=== PATIENT | male | born 1925 | race Caucasian/White ===

== ENCOUNTER 2016-06-20 09:45 | Outpatient (CLI) | payer MEDICARE, OTHER | END 2016-06-20 23:59 | disposition home or self-care (01) | LOC: WOU 09:45 | PROVIDERS: ATTEND Podiatrist Foot & Ankle Surgery | DX: I87.2 Venous insufficiency (chronic) (peripheral) (principal); L97.321 Non-pressure chronic ulcer of left ankle limited to breakdown of skin; R60.0 Localized edema; I10 Essential (primary) hypertension; E03.9 Hypothyroidism, unspecified | CPT/HCPCS: 11042; A6209; A6402 ==

== ENCOUNTER 2016-06-24 09:40 | Outpatient (CLI) | payer MEDICARE, OTHER | END 2016-06-24 23:59 | disposition home or self-care (01) | LOC: WOU 09:40 | PROVIDERS: ATTEND Podiatrist Foot & Ankle Surgery | DX: I87.319 Chronic venous hypertension (idiopathic) with ulcer of unspecified lower extremity (principal); L97.909 Non-pressure chronic ulcer of unspecified part of unspecified lower leg with unspecified severity; R60.0 Localized edema; I70.202 Unspecified atherosclerosis of native arteries of extremities, left leg | CPT/HCPCS: 93925-TC; 93926-TC; 93971-TC ==

== ENCOUNTER 2016-06-27 09:40 | Outpatient (CLI) | payer MEDICARE, OTHER | END 2016-06-27 23:59 | disposition home or self-care (01) | LOC: WOU 09:40 | PROVIDERS: ATTEND Podiatrist Foot & Ankle Surgery | DX: I87.332 Chronic venous hypertension (idiopathic) with ulcer and inflammation of left lower extremity (principal); L97.821 Non-pressure chronic ulcer of other part of left lower leg limited to breakdown of skin; E03.9 Hypothyroidism, unspecified; Z91.040 Latex allergy status | CPT/HCPCS: 11042; A6402 ==

== ENCOUNTER 2016-07-08 13:46 | Outpatient (CLI) | payer MEDICARE, OTHER | END 2016-07-08 23:59 | disposition home or self-care (01) | LOC: VASLAB 13:46 | PROVIDERS: ATTEND Surgery Vascular Surgery | DX: I73.89 Other specified peripheral vascular diseases (principal); I70.248 Atherosclerosis of native arteries of left leg with ulceration of other part of lower leg; L97.829 Non-pressure chronic ulcer of other part of left lower leg with unspecified severity; I10 Essential (primary) hypertension; T14.90 Injury, unspecified; W22.8XXS Striking against or struck by other objects, sequela; Z91.040 Latex allergy status | CPT/HCPCS: A6207; A6402; G0463 ==

== ENCOUNTER 2016-07-09 09:20 | Outpatient (CLI) | payer MEDICARE, OTHER | END 2016-07-09 23:59 | disposition home or self-care (01) | LOC: WOU 09:20 | PROVIDERS: ATTEND Podiatrist Foot & Ankle Surgery | DX: I87.2 Venous insufficiency (chronic) (peripheral) (principal); L97.829 Non-pressure chronic ulcer of other part of left lower leg with unspecified severity; I10 Essential (primary) hypertension; E03.9 Hypothyroidism, unspecified; T14.90 Injury, unspecified; W22.8XXS Striking against or struck by other objects, sequela; I96 Gangrene, not elsewhere classified | CPT/HCPCS: 11042; A6207 ×2; A6402 ==

== ENCOUNTER 2016-07-15 09:09 | Outpatient (CLI) | payer MEDICARE, OTHER | END 2016-07-15 23:59 | disposition home or self-care (01) | LOC: WOU 09:09 | PROVIDERS: ATTEND Podiatrist Foot & Ankle Surgery | DX: I87.2 Venous insufficiency (chronic) (peripheral) (principal); L97.821 Non-pressure chronic ulcer of other part of left lower leg limited to breakdown of skin; I73.89 Other specified peripheral vascular diseases; R60.0 Localized edema; E03.9 Hypothyroidism, unspecified; I10 Essential (primary) hypertension; T14.90 Injury, unspecified; W22.8XXS Striking against or struck by other objects, sequela | CPT/HCPCS: 11042; A6402 ×2 ==

== ENCOUNTER 2016-07-29 09:15 | Outpatient (CLI) | payer MEDICARE, OTHER | END 2016-07-29 23:59 | disposition home or self-care (01) | LOC: WOU 09:15 | PROVIDERS: ATTEND Podiatrist Foot & Ankle Surgery | DX: I87.332 Chronic venous hypertension (idiopathic) with ulcer and inflammation of left lower extremity (principal); L97.829 Non-pressure chronic ulcer of other part of left lower leg with unspecified severity; B35.1 Tinea unguium | CPT/HCPCS: 11042; A6207; A6402 ×2 ==